=== PATIENT | female | born 1950 | race Two or more races ===

== ENCOUNTER 2017-07-21 09:13 | Outpatient (CLI) | payer OTHER | END 2017-07-21 15:00 | disposition home or self-care (01) | LOC: RAD 09:13 | DX: M12.861 Other specific arthropathies, not elsewhere classified, right knee (principal); M17.11 Unilateral primary osteoarthritis, right knee ==

== ENCOUNTER 2019-03-31 09:01 | Outpatient (CLI) | payer OTHER | END 2019-03-31 09:12 | disposition home or self-care (01) | LOC: LAB 09:01 | DX: B96.29 Other Escherichia coli [E. coli] as the cause of diseases classified elsewhere (principal); I10 Essential (primary) hypertension; E11.9 Type 2 diabetes mellitus without complications; E03.8 Other specified hypothyroidism; E78.2 Mixed hyperlipidemia; N39.0 Urinary tract infection, site not specified ==

== ENCOUNTER 2019-07-27 14:28 | Outpatient (CLI) | payer OTHER | END 2019-07-27 15:00 | disposition home or self-care (01) | LOC: MRI 14:28 | DX: G30.1 Alzheimer's disease with late onset (principal) | CPT/HCPCS: 70551 ==

== ENCOUNTER 2020-08-27 14:37 | Outpatient (CLI) | payer OTHER | END 2020-08-27 14:39 | disposition home or self-care (01) | LOC: NUCLEAR 14:37 | DX: M81.0 Age-related osteoporosis without current pathological fracture (principal) ==

== ENCOUNTER → 2021-01-14 09:12 | Outpatient (CLI) | payer OTHER | END | disposition home or self-care (01) | LOC: NUCLEAR 09:00 | DX: I25.10 Atherosclerotic heart disease of native coronary artery without angina pectoris (principal); I10 Essential (primary) hypertension; I65.23 Occlusion and stenosis of bilateral carotid arteries ==

== ENCOUNTER 2022-06-24 12:56 | Outpatient (CLI) | payer OTHER | END 2022-06-24 13:01 | disposition home or self-care (01) | LOC: RAD 12:56 | PROVIDERS: ATTEND Internal Medicine Cardiovascular Disease | DX: M12.9 Arthropathy, unspecified (principal) ==